=== PATIENT | male | born 1985 | race Caucasian/White ===

== ENCOUNTER 2018-03-21 23:05 | Emergency (ER) | payer SELFPAY ==
[2018-03-21 23:09] VITALS: BP 109/69; PULSE 108; TEMP 99.3; BMI 26.5
[2018-03-22] MEDS ORDERED: IBUPROFEN 600 MG TABLET (FP) PO ONE ×2 (01:18→01:42)
[2018-03-22 01:55] LABS: BASO % 0.9 % (0-2.0); EOS % 1.3 % (0-4.5); HEMATOCRIT 38.1 % (35.4-49); HEMOGLOBIN 12.9 GM/dL (11.7-16.9); LYMPH % 15.5 % (8-40); MCH 29.6 pg (25.7-33.7); MCHC 33.8 g/dl (32.0-35.9); MEAN CELL VOLUME 87.6 fl (80-96); MEAN PLT VOLUME 8.7 fl (7.5-11.1); MONO % 8.3 % (3.8-10.2); PLATELET COUNT 294 K/MM3 (134-434); RBC 4.35 M/mm3 (4.00-5.60); RDW 12.9 % (11.9-15.9); WHITE BLOOD COUNT 11.7 K/mm3 (4.0-10.0)
[2018-03-22 02:17] LABS: ALBUMIN 3.5 g/dl (3.4-5.0); ANION GAP 7 (8-16); BILIRUBIN,TOTAL 0.3 mg/dL (0.2-1.0); BLOOD UREA NITROGEN 19 mg/dL (7-18); CALCIUM 8.3 mg/dL (8.5-10.1); CHLORIDE 104 mmol/L (98-107); CO2 29 mmol/L (21-32); CREATININE 0.9 mg/dL (0.7-1.3); GLUCOSE,RANDOM 99 mg/dL (74-106); POTASSIUM 3.5 mmol/L (3.5-5.1); SGOT/AST 18 U/L (15-37); SGPT/ALT 23 U/L (12-78); SODIUM 140 mmol/L (136-145); TOT PROT 7.6 g/dl (6.4-8.2)
[2018-03-22 02:18] LABS: ALK PHOS 86 U/L (45-117)
[2018-03-22] MEDS ORDERED: AZITHROMYCIN 500 MG TABLET PO ONE (03:07)
--- NOTE | 2018-03-22 03:09 | PDOC ---
History of Present Illness - General History Source: Patient <Pelon Cespedes - Last Filed: 03/22/18 03:28> <Yudith Austin - Last Filed: 03/22/18 03:48> - General Chief Complaint: Cold Symptoms Stated Complaint: PAIN Time Seen by Provider: 03/22/18 00:03 Past History - Past Medical History COPD: No - Immunization History Immunization Up to Date: No - Suicide/Smoking/Psychosocial Hx Smoking Status: No Smoking History: Never smoked Number of Cigarettes Smoked Daily: 0 Hx Alcohol Use: Yes ("sometimes") Drug/Substance Use Hx: No Substance Use Type: None <Pelon Cespedes - Last Filed: 03/22/18 03:28> <Yudith Austin - Last Filed: 03/22/18 03:48> - Past Medical History Allergies/Adverse Reactions: Allergies Allergy/AdvReac Type Severity Reaction Status Date / Time No Known Allergies Allergy Verified 03/21/18 23:10 Home Medications: Ambulatory Orders No Home Medications 0 dose .ROUTE UTDICT 07/01/12 Meclizine HCl [Antivert -] 25 mg PO TID #21 tablet 05/13/15 Ciprofloxacin [Cipro (Restricted To Id)] 500 mg PO Q12H #20 tablet 01/10/16 Clotrimazole [Antifungal] 1 tube TP DAILY PRN #14 gm 01/10/16 Clotrimazole [Jock Itch Relief] 15 gm TP DAILY PRN #1 cream..g. 01/10/16 Azithromycin [Zithromax 250mg Tablets -] 250 mg PO DAILY #4 tablet 03/22/18 Review of Systems - Review of Systems Able to Perform ROS?: Yes Is the patient limited Hebrew proficient: No Constitutional: Yes: Chills, Fever HEENTM: No: Symptoms Reported Respiratory: Yes: Cough, Productive cough Cardiac (ROS): No: Symptoms Reported ABD/GI: No: Symptoms Reported : No: Symptoms Reported Musculoskeletal: No: Symptoms Reported Integumentary: No: Symptoms Reported Neurological: No: Symptoms reported <Pelon Cespedes - Last Filed: 03/22/18 03:28> *Physical Exam - Vital Signs Last Vital Signs Temp Pulse Resp BP Pulse Ox 99.3 F 108 H 18 109/69 98 03/21/18 23:07 03/21/18 23:07 03/21/18 23:07 03/21/18 23:07 03/21/18 23:07 - Physical Exam General Appearance: Yes: Nourished, Appropriately Dressed, Apparent Distress HEENT: positive: EOMI, ZAYDA, Normal ENT Inspection Respiratory/Chest: positive: Decreased Breath Sounds. negative: Chest Tender Cardiovascular: positive: Regular Rhythm, S1, S2, Tachycardia Gastrointestinal/Abdominal: positive: Normal Bowel Sounds, Flat, Soft. negative : Tender Musculoskeletal: positive: Normal Inspection. negative: CVA Tenderness Extremity: positive: Normal Capillary Refill, Normal Inspection, Normal Range of Motion Integumentary: positive: Normal Color, Dry, Warm Neurologic: positive: Fully Oriented, Alert, Normal Mood/Affect <Pelon Cespedes - Last Filed: 03/22/18 03:28> - Vital Signs Last Vital Signs Temp Pulse Resp BP Pulse Ox 99.3 F 108 H 18 109/69 98 03/21/18 23:07 03/21/18 23:07 03/21/18 23:07 03/21/18 23:07 03/21/18 23:07 <Yudith Austin - Last Filed: 03/22/18 03:48> ED Treatment Course - LABORATORY CBC & Chemistry Diagram: 03/22/18 01:42 03/22/18 01:42 - ADDITIONAL ORDERS Additional order review: Laboratory Results 03/22/18 01:42 Sodium 140 Potassium 3.5 Chloride 104 Carbon Dioxide 29 Anion Gap 7 L BUN 19 H Creatinine 0.9 Creat Clearance w eGFR > 60 Random Glucose 99 Calcium 8.3 L Total Bilirubin 0.3 AST 18 ALT 23 Alkaline Phosphatase 86 Total Protein 7.6 Albumin 3.5 03/22/18 01:42 RBC 4.35 MCV 87.6 MCHC 33.8 RDW 12.9 MPV 8.7 Neutrophils % 74.0 Lymphocytes % 15.5 Monocytes % 8.3 Eosinophils % 1.3 Basophils % 0.9 - RADIOLOGY Radiology Studies Ordered: Category Date Time Status CHEST PA & LAT [RAD] Stat Radiology 03/22/18 01:18 Taken - Medications Given in the ED: ED Medications Discontinued Medications Generic Name Dose Route Start Last Admin Trade Name Freq PRN Reason Stop Dose Admin Ibuprofen 600 mg 03/22/18 01:18 03/22/18 01:48 Motrin - PO 03/22/18 01:19 600 mg ONCE ONE Administration <Pelon Cespedes - Last Filed: 03/22/18 03:28> - LABORATORY CBC & Chemistry Diagram: 03/22/18 01:42 03/22/18 01:42 - ADDITIONAL ORDERS Additional order review: Laboratory Results 03/22/18 01:42 Sodium 140 Potassium 3.5 Chloride 104 Carbon Dioxide 29 Anion Gap 7 L BUN 19 H Creatinine 0.9 Creat Clearance w eGFR > 60 Random Glucose 99 Calcium 8.3 L Total Bilirubin 0.3 AST 18 ALT 23 Alkaline Phosphatase 86 Total Protein 7.6 Albumin 3.5 03/22/18 01:42 RBC 4.35 MCV 87.6 MCHC 33.8 RDW 12.9 MPV 8.7 Neutrophils % 74.0 Lymphocytes % 15.5 Monocytes % 8.3 Eosinophils % 1.3 Basophils % 0.9 - Medications Given in the ED: ED Medications Discontinued Medications Generic Name Dose Route Start Last Admin Trade Name Freq PRN Reason Stop Dose Admin Azithromycin 500 mg 03/22/18 03:07 03/22/18 03:43 Azithromycin PO 03/22/18 03:08 500 mg ONCE ONE Administration Ibuprofen 600 mg 03/22/18 01:18 03/22/18 01:48 Motrin - PO 03/22/18 01:19 600 mg ONCE ONE Administration <Yudith Austin - Last Filed: 03/22/18 03:48> Medical Decision Making - Medical Decision Making 03/22/18 03:32 pneumonia on xray. will give azithromycin dose and prescription. <Pelon Cespedes - Last Filed: 03/22/18 03:28> *DC/Admit/Observation/Transfer - Discharge Dispostion Decision to Admit order: No <Pelon Cespedes - Last Filed: 03/22/18 03:28> <Yudith Austin - Last Filed: 03/22/18 03:48> Diagnosis at time of Disposition: Pneumonia - Discharge Dispostion Disposition: HOME Condition at time of disposition: Improved - Prescriptions Prescriptions: Azithromycin [Zithromax 250mg Tablets -] 250 mg PO DAILY #4 tablet - Referrals Referrals: Salvador Tyler MD [Staff Physician] - - Patient Instructions Printed Discharge Instructions: Pneumonia-Adult Additional Instructions: Follow up with Dr. Tyler. Come back to the ER for any new, worsening or concerning symptom. Take antibiotics as prescribed.
[2018-03-22] MEDS ORDERED: AZITHROMYCIN 500 MG TABLET ONE (03:39)
--- NOTE | 2018-03-22 03:50 | PDOC ---
Attending Attestation - Resident Resident Name: Pelon Cespedes - ED Attending Attestation I have performed the following: I have examined & evaluated the patient, The case was reviewed & discussed with the resident, I agree w/resident's findings & plan - HPI HPI: 03/22/18 03:50 Jose Bailey 33 YOM with tactile fever, cough/congestion, myalgias and malaise x 5 days. No sick contacts. No GI sx. Tolerating fluids. - Physicial Exam PE: 03/22/18 03:50 NAD, well appearing, MMM, nl conjunctiva, anicteric; no oral lesions; neck supple. lungs clear, RRR, abdomen soft nontender. SHELLEY x4, no focal neuro deficits. No peripheral edema. normal color for ethnicity, WWP. - Medical Decision Making 03/22/18 03:50 Jose Bailey 33 YOM with tactile fever, cough/congestion, myalgias and malaise x 5 days. No sick contacts. No GI sx. Tolerating fluids. Vital signs notable for mild tachycardia, subjective fevers, normotensive. Likely from low grade fever and infection, does not appear septic, well appearing. Lungs clear. CXR with infiltrate in Right lower lobe c/w pneumonia, rx azithromycin. Labs wnl. Tolerating fluids w/o difficult. Pt informed of my clinical impression, treatment recommendations and disposition plan. All questions answered to patient's satisfaction and expressed understanding and comfort with this. Reasons for returning to the ED sooner discussed with the patient otherwise, follow up with her primary care physician. At the time of discharge, the patient is alert, improved, tolerating po and understands instructions. Rx azithromycin x 4 more days, first dose here.
== END 2018-03-22 03:44 | disposition home or self-care (01) ==
LOC: JER 23:05
DX: J18.9 Pneumonia, unspecified organism (principal)
CPT/HCPCS: 36415; 71046-TC-FY; 80053; 85025; 99281-25